=== PATIENT | female | born 1935 | race Caucasian/White ===

== ENCOUNTER 2017-03-05 08:50 | Emergency (ER) | payer MEDICARE ==
--- NOTE | 2017-03-05 09:04 | ED.PDOC ---
History of Present Illness - General Chief Complaint: Lower Extremity Injury Stated Complaint: fall Time Seen by Provider: 03/05/17 08:57 Source: patient Exam Limitations: no limitations - History of Present Illness Initial Comments: Patient presents with right ankle pain after falling from a step. She landed on her buttocks. She says that she heard a "pop" in her right ankle. She complains of mild pain in the right ankle but got morphine 10 mg IV in the ambulance. No previous history of trauma to the area. Did not lose consciousness nor hit her head. No other complaints. Timing/Duration: 1/2 hour Severity: moderate Improving Factors: rest Worsening Factors: movement Associated Symptoms: denies symptoms Allergies/Adverse Reactions: Allergies NO KNOWN ALLERGY Allergy (Verified 03/05/17 09:06) Review of Systems - Review of Systems Constitutional: States: no symptoms reported EENTM: States: no symptoms reported Respiratory: States: no symptoms reported Cardiology: States: no symptoms reported Gastrointestinal/Abdominal: States: no symptoms reported Genitourinary: States: no symptoms reported Musculoskeletal: States: see HPI Skin: States: no symptoms reported Neurological: States: no symptoms reported Endocrine: States: no symptoms reported Hematologic/Lymphatic: States: no symptoms reported Past Medical History (General) - Patient Medical History Hx Stroke: No Hx Congestive Heart Failure: No Hx Hypertension: Yes Hx Diabetes: No - Vaccination History Hx Tetanus, Diphtheria Vaccination: Yes Hx Influenza Vaccination: No Hx Pneumococcal Vaccination: Yes - years ago - Social History Hx Tobacco Use: Yes - Female History Patient : No Family Medical History - Family History Mother Family History: No Known Living Status: Physical Exam - Physical Exam General Appearance: Alert Respiratory: lungs clear Cardiovascular/Chest: normal peripheral pulses, regular rate, rhythm Gastrointestinal/Abdominal: normal bowel sounds, non tender, soft Extremity: other - obvious deformity to the right ankle. Patient has full sensation over the entire foot and toes. 2+ dorsal pedis pulses and skin is warm to touch. Capillary refill is less than 2 seconds. Neurologic: no motor/sensory deficits Progress - Progress Progress: 03/05/17 09:06 Zofran 4 mg IV x one. 03/05/17 10:09 Three view of the right ankle showed possible two fractures to the medial malleolus and anterior displacement of the tibia from the talus. Displacement was reduced as well as the malleolar fractures. Short leg splint applied. Repeat radiographs showed full reduction of the displacement and fractures. Hydrocodone/APAP rx written. Patient instructed to follow up with orthopedics in three days. 03/05/17 10:56 Departure - Departure Clinical Impression: Sprain of right ankle or foot Disposition: Discharge to Home or Self Care Condition: Good Departure Forms: ED Discharge - Pt. Copy, Patient Portal Self Enrollment Diet: resume usual diet Activity: other - use crutche Referrals: Reginaldo Holloway MD [Primary Care Provider] - 1-2 Weeks Additional Instructions: Take pain medications as directed if needed. Keep right foot elevated at night. May use ice as needed. Follow up with orthopedic surgeon in three days for casting.
[2017-03-05 09:07] VITALS: TEMP 97.7
[2017-03-05] MEDS ORDERED: ONDANSETRON INJ 4 MG/2 ML VIAL IV ONE (09:07)
--- NOTE | 2017-03-05 09:36 | RAD ---
EXAM DESCRIPTION: Ankle,Right 3 Views CLINICAL HISTORY: fall with deformity to right ankle COMPARISON: None. IMPRESSION: 3 views of the right ankle show fracture or dislocation. There is probable fracture of at least the medial malleolus and probably distal posterior tibia. Lateral projection shows anterior displacement of the tibia relative to the talus. Question osseous fragments anterior and distal to the tibia. There also appears to be fracture through the tibial plafond extending to the lateral aspect of the distal tibia. Osseous structures are diffusely osteopenic. Mild vascular calcifications are seen. Small plantar enthesophyte of the calcaneus is noted. Electronically signed by: Dominick Nelson MD 03/05/2017 9:35 AM CDT
[2017-03-05 09:37] VITALS: BP 176/72; O2SAT 93
[2017-03-05] MEDS ORDERED: BACITRACIN-POLYMYXIN B OINT U/D PACK TOP ONE (09:56)
--- NOTE | 2017-03-05 10:36 | RAD ---
EXAM DESCRIPTION: Ankle,Right 3 Views CLINICAL HISTORY: 81 years, Female, status post reduction COMPARISON: 9:19 AM today FINDINGS: Improved near anatomic alignment ankle joint now seen. There are fractures of the medial and lateral malleolus. Minimal lateral subluxation of the lower fibula. Ankle mortise appears restored. Soft tissue swelling around the ankle particularly laterally. IMPRESSION: Improved near anatomic alignment right ankle joint post reduction. Ankle mortise is restored with near anatomic alignment fractures of the medial and lateral malleolus. Moderate soft tissue swelling around the ankle particularly laterally. Other findings stable compared to earlier today Electronically signed by: Kamaljit Badillo MD 03/05/2017 10:36 AM CDT
== END 2017-03-05 11:51 | disposition home or self-care (01) ==
LOC: ER 08:50
DX: S93.401A Sprain of unspecified ligament of right ankle, initial encounter (principal); I10 Essential (primary) hypertension; W10.9XXA Fall (on) (from) unspecified stairs and steps, initial encounter; Y92.9 Unspecified place or not applicable
CPT/HCPCS: 73610; J2405

== ENCOUNTER → 2017-03-08 | Outpatient (CLI) | payer MEDICARE ==
--- NOTE | 2017-03-09 08:49 | RAD ---
EXAM DESCRIPTION: Ankle,Right 3 Views CLINICAL HISTORY: 81 years Female, ANKLE PAIN IMPRESSION: 3 views of bilateral ankles reveal medial and lateral malleoli fractures with soft tissue swelling. There is some widening of the medial clear space which would be expected in a bimalleolar fracture. The syndesmosis appears intact. Electronically signed by: Barron Mckenna MD 03/09/2017 8:49 AM CDT
== END | disposition home or self-care (01) ==
LOC: RAD 09:50
PROVIDERS: ATTEND Orthopaedic Surgery
DX: M25.571 Pain in right ankle and joints of right foot (principal)

== ENCOUNTER → 2017-03-15 | Outpatient (CLI) | payer MEDICARE ==
--- NOTE | 2017-03-15 10:50 | RAD ---
EXAM DESCRIPTION: Ankle,Right 3 Views CLINICAL HISTORY: 81 years Female, CLOSED FX OF ANKLE IMPRESSION: 3 views of the right ankle are compared to March 05, 2017. There has been reduction of the ankle. The ankle mortise and syndesmosis appear unremarkable on today's study. The lateral and medial malleolus fractures demonstrate interval healing with sclerosis through the fracture. Decreasing soft tissue swelling is noted. The talar dome and subtalar joints appear unremarkable. Electronically signed by: Barron Mckenna MD 03/15/2017 10:50 AM CDT
== END | disposition home or self-care (01) ==
LOC: RAD 10:10
PROVIDERS: ATTEND Orthopaedic Surgery
DX: S82.91XD Unspecified fracture of right lower leg, subsequent encounter for closed fracture with routine healing (principal); X58.XXXA Exposure to other specified factors, initial encounter

== ENCOUNTER → 2017-03-29 | Outpatient (CLI) | payer MEDICARE ==
--- NOTE | 2017-03-30 10:27 | RAD ---
EXAM DESCRIPTION: Ankle,Right 3 Views CLINICAL HISTORY: 81 years, Female, CLOSED FX OF ANKLE COMPARISON: March 15, 2017, March 05, 2017 TECHNIQUE: AP/lateral/oblique of the ankle FINDINGS: The right ankle mortise is in satisfactory level alignment with an encircling fiberglass cast that has been relieved medially at just above the ankle. Fracture lines are difficult to appreciate through the fiberglass cast with no evidence of abnormal angulation or widening noted. Previous fracture dislocation from March 05 was reviewed. Healing fractures of the medial and lateral malleoli are suggested. IMPRESSION: 1. Encircling fiberglass cast with apparent healing fractures of the distal fibula and medial malleolus with satisfactory alignment of the ankle. Electronically signed by: Vj Sung MD 03/30/2017 10:26 AM CDT
== END ==
LOC: RAD 08:03
PROVIDERS: ATTEND Orthopaedic Surgery
DX: S82.91XD Unspecified fracture of right lower leg, subsequent encounter for closed fracture with routine healing (principal)

== ENCOUNTER → 2017-04-26 | Outpatient (CLI) | payer MEDICARE ==
--- NOTE | 2017-04-26 14:21 | RAD ---
EXAM DESCRIPTION: Ankle,Right 3 Views CLINICAL HISTORY: 81 years Female, FX COMPARISON: March 29, 2017 FINDINGS: 3 views of the right ankle were obtained. Artifact from superimposed splint material limits evaluation of bony detail. Again seen are slightly displaced medial and lateral malleolar fractures which remain at least partially nonunited and are unchanged in appearance from 1 month prior. There is a questionable nondisplaced posterior malleolar fracture. The tibiotalar joint space and talar dome are well-maintained. IMPRESSION: Non or partially united, minimally displaced medial and lateral malleolar fractures, unchanged from 1 month prior. Questionable nondisplaced posterior malleolar fracture. Electronically signed by: Nate Campos MD 04/26/2017 2:20 PM CDT Workstation: [id number]
== END ==
LOC: RAD 08:01
PROVIDERS: ATTEND Orthopaedic Surgery
DX: S82.91XD Unspecified fracture of right lower leg, subsequent encounter for closed fracture with routine healing (principal)

== ENCOUNTER → 2017-05-14 | Outpatient (CLI) | payer MEDICARE ==
--- NOTE | 2017-05-14 17:25 | RAD ---
EXAM DESCRIPTION: Ankle,Right 3 Views CLINICAL HISTORY: 81 years,Female,CLOSED FX OF ANKLE-RIGHT COMPARISON: April 26, 2017 FINDINGS: The right ankle demonstrates trimalleolar fracture which is healing. The catheter is been removed since the prior study. There still remains a joint effusion. And there is only minimal displacement of the fracture fragments which is stable talar dome unremarkable Soft tissues are unremarkable. IMPRESSION: Right ankle demonstrates healing trimalleolar fracture with minimal stable displacement. Cast been removed since prior study. [] Electronically signed by: Donny Haskins MD 05/14/2017 5:23 PM CDT
== END | disposition home or self-care (01) ==
LOC: RAD 09:01
PROVIDERS: ATTEND Orthopaedic Surgery
DX: S82.91XD Unspecified fracture of right lower leg, subsequent encounter for closed fracture with routine healing (principal)

== ENCOUNTER → 2017-06-04 | Outpatient (CLI) | payer MEDICARE ==
--- NOTE | 2017-06-04 11:48 | RAD ---
EXAM DESCRIPTION: Ankle,Right 3 Views CLINICAL HISTORY: 81 years Female, FX COMPARISON: May 14, 2017 FINDINGS: 3 views of the right ankle show old partially united medial and lateral malleolar fracture, stable. There is a probable healed posterior malleolar fracture. No new fracture or malalignment. The tibiotalar joint space and talar dome are well-maintained. Vascular calcifications are noted.. IMPRESSION: Old healed or healing trimalleolar right ankle fracture, stable. No new abnormality. Electronically signed by: Nate Campos MD 06/04/2017 11:46 AM CDT Workstation: [email or web address]
== END ==
LOC: RAD 07:51
PROVIDERS: ATTEND Orthopaedic Surgery
DX: S82.91XD Unspecified fracture of right lower leg, subsequent encounter for closed fracture with routine healing (principal)

== ENCOUNTER → 2017-07-03 | Outpatient (CLI) | payer MEDICARE | END | disposition home or self-care (01) | LOC: GMAH 11:19 | PROVIDERS: ATTEND Family Medicine | DX: E78.2 Mixed hyperlipidemia (principal) ==

== ENCOUNTER → 2017-12-06 | Outpatient (CLI) | payer MEDICARE | LOC: GMAH 16:39 | PROVIDERS: ATTEND Family Medicine | DX: N30.00 Acute cystitis without hematuria (principal) ==

== ENCOUNTER 2018-02-26 14:15 | Inpatient (IN) | payer MEDICARE ==
--- NOTE | 2018-02-26 14:33 | HP ---
SUPERVISING PHYSICIAN: Vj Hernandez MD CHIEF COMPLAINT: Right malleolus nonhealing wound. HISTORY OF PRESENT ILLNESS: Ms. Cardoza is an 82-year-old female patient who has had multiple surgeries of the right ankle after she sustained a fracture on 02/26/17. She notes she was walking out of her shop, twisted her ankle and after examination by x-ray, it was found the ankle was fractured. She was treated conservatively by Dr. Dickerson conservatively over the summer. She felt like the ankle was not healing and sought a second opinion with another orthopedic surgeon at [facility], Dr. Lozada, who then in September did an open reduction internal fixation of the right ankle. She did have fairly well, but developed an infection postoperatively and then had to have the hardware removed on 12/12/17. After that surgery, she started rehab for wound care management at [facility] outpatient therapy. The patient had been advised multiple times to seek advanced wound care, but had refused to go to [place] for wound management and at that point was transferred care back to physical therapy who has been doing wound care at least two days a week. She does have a long history of smoking since age 45 approximately 1 to 1 -1/2 packs a day and currently smokes. She denies any recent treatment with antibiotics and was at wound care today when Bala, physical therapist, noted that the wound had significantly changed over the weekend since Sunday and noted some area of cellulitis and possible worsening with concern for a localized infection. Given that the wound is overlying the medial malleolus and has underlying hardware to include two screws that were left, the patient is now going to be admitted for initiation of antibiotic therapy parenterally with a consultation with Dr. Tatum for further management of wound. The patient was admitted in stable condition. PAST MEDICAL HISTORY: 1. Depression. 2. Hyperlipidemia. 3. Hypertension. 4. 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 5. Ankle fracture requiring multiple surgeries for initial repair and then after an infectious process for surgical removal of hardware. PAST SURGICAL HISTORY: 1. Hysterectomy. 2. Right carotid endarterectomy. 3. Ankle surgery for open reduction internal fixation in September 2017 and surgical removal of hardware due to postoperative complications and infection, performed by orthopedic surgeon, Dr. Phoenix Lozada at [facility] in [place]. HOME MEDICATIONS: 1. [place] 5/325 1 q.4h. p.r.n. for pain. 2. Citalopram 2 mg daily. 3. Simvastatin 40 mg at bedtime. 4. Losartan 100 mg daily. 5. Metoprolol tartrate 50 mg b.i.d. 6. Hydralazine 50 mg b.i.d. 7. Ramipril 10 mg b.i.d. 8. Meloxicam 7.5 mg daily. ALLERGIES: CODEINE. FAMILY HISTORY: Noncontributory. SOCIAL HISTORY: The patient lives in [place]. 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 She does not drink alcohol, but she has a history of smoking tobacco well over 44 years, 1 to 1-1/2 a day. REVIEW OF SYSTEMS: CONSTITUTIONAL: Denies any fevers, chills, or unintentional weight loss. HEENT: Denies headaches, sore throats, nasal congestion, earaches. RESPIRATORY: Denies cough, dyspnea, wheezing. CARDIOVASCULAR: Denies chest pain, palpitations or syncopal episodes. GASTROINTESTINAL: Denies constipation, diarrhea, abdominal pain, nausea or vomiting. MUSCULOSKELETAL: As noted in history of present illness, chronic wound to the right ankle, medial malleolus, currently under wound management. NEUROLOGIC: Denies ataxia, headaches, seizures or other neurological deficits. PHYSICAL EXAMINATION: VITAL SIGNS: Afebrile on admission with temperature 98.1. Pulse 66. Blood pressure elevated at 200/93 with pulse 16, saturation 100% on room air. Weight 54.9 kg. GENERAL: On admission, the patient appears to be comfortable, resting, no acute distress, she is alert. HEENT: Tympanic membranes are occluded by cerumen bilaterally. Oropharynx is pink, moist without any lesions. NECK: Supple, nontender with full range of motion. No jugular venous distention noted. RESPIRATORY: Lungs clear to auscultation bilaterally without any rhonchi, wheezes, or rales. CARDIOVASCULAR: Regular rate and rhythm without any appreciable murmurs, gallops, or rubs. ABDOMEN: Soft, nontender. Positive bowel sounds. EXTREMITIES: The right lower extremity shows a wound overlying the medial malleolus, quarter size, symmetrical in appearance with some localized erythema with a central area that appears to be with some purulent drainage, but no obvious drainage noted distally. Pulses are the fait bilaterally with capillary refill brisk. NEUROLOGIC: The patient is alert and oriented times three. LABORATORY: CBC on admission was within normal limits with white count 7,900. No left shift was noted. Electrolytes were normal with potassium 4.1, BUN 10, creatinine 0.61, lactic acid 0.8, calcium 9.6. Liver functions all within normal limits. C-reactive protein is less than 0.05. MICROBIOLOGY: Wound culture of the right malleolus wound is pending. Blood cultures pending. RADIOLOGY: X-ray of the right ankle per radiologic interpretation shows osteoporotic appearance of the bones of the right ankle and foot with screws through the medial malleolar fracture. There was deformity of the lateral malleolus due to old healed fracture and screws through the malleolar fracture with no acute appearing fracture or callus of the calcaneus. There was widening of the ankle joint medially, but bones appear to be osteopenic. Please see that report for full details. ASSESSMENT: 1. 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 2. Chronic wound failing to respond to outpatient wound care management with concerns for worsening acutely and localized cellulitis requiring initiation of parenteral antibiotics and further consultation for wound management with Dr. Tatum, general surgeon. 3. Hypertension, poorly controlled. 4. Chronic tobacco abuse complicating wound management with pending lower extremity arterial studies. 5. Osteoporosis. PLAN: The patient will be admitted directly from physical therapy for initiation of parenteral antibiotics to include vancomycin per pharmacy protocol as well as dosing of broad spectrum coverage with wound cultures pending, and broad spectrum coverage with Unasyn [address] Tatum has been consulted to assist with wound management and consideration for possible need for a further surgical debridement of the wound in question. The patient will be encouraged to keep her leg elevated. Wound care will be wet-to-dry dressing and further management per Dr. Tatum. Wound cultures are pending. We will target antibiotic therapy according to those results once available. We will have her on DVT prophylaxis as per protocol. She is again encouraged to stop smoking which she notes that will not happen and she has been given a nicotine patch to assist in her efforts in preventing nicotine withdrawals while in the hospital. We will await arterial vascular studies, ultrasound in the morning. We will anticipate length of stay to be at least 2 to 3 days. I did discuss with her the need for advanced wound management if possible in [place]. 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 Once clinically stable, the patient can certainly continue with outpatient management with wound care as well as consideration for possible long -term antibiotic therapy as needed. Until then, we will continue to monitor the patient closely and treat appropriately. #[id number] [facility]
[2018-02-26] MEDS ORDERED: ACETAMINOPHEN 325 MG TAB PO PRN (14:48)
[2018-02-26] MEDS ORDERED: VANCOMYCIN PER PHARMACY IVPB SCH (15:30)
--- NOTE | 2018-02-26 15:42 | RAD ---
EXAM DESCRIPTION: Ankle,Right 3 Views CLINICAL HISTORY: 82 years, Female, chronic wound rt Malleolus s/p harware removal COMPARISON: Previous study June 04, 2017 TECHNIQUE: AP/lateral/oblique of the right ankle FINDINGS: Screws are seen through medial malleolar fracture. Deformity of the lateral malleolus is consistent with old healed fracture. There is widening of the ankle joint medially. Bones appear osteopenic. No defect of the talar dome. Lateral view shows osteopenic bones of the hindfoot and midfoot. No acute appearing fracture of talus or calcaneus. Dorsal calcaneal spurring is present. Distal first metatarsal is questionable in appearance. Correlate with physical exam with x-rays if indicated. IMPRESSION: Osteoporotic appearance of the bones of the right ankle and foot with screws through medial malleolar fracture. Electronically signed by: Elton Gonzalez MD 02/26/2018 3:40 PM CDT
[2018-02-26] MEDS: IV SET AND CAP CHANGE INJ INJ SCH (15:51)
[2018-02-26] MEDS ORDERED: VANCOMYCIN HCL INJ 1,000 MG in SODIUM CHLORIDE 0.9% 250ML 250 ML IVPB ONE (16:00)
[2018-02-26] MEDS ORDERED: SODIUM CHLORIDE 0.9% 250ML 250 ML ONE (16:22)
[2018-02-26] MEDS ORDERED: VANCOMYCIN HCL INJ 1,000 MG VIAL IVPB ONE (16:22)
[2018-02-26] MEDS ORDERED: HYDROcodone 5MG/APAP 325MG 1 EA TAB ONE (17:09)
[2018-02-26] MEDS ORDERED: HYDROcodone 5MG/APAP 325MG 1 EA TAB PO ONE (17:18)
--- NOTE | 2018-02-26 18:33 | PCM.CORE ---
Physician DVT/VTE - Nurse DVT Assessment & Total Each Risk Factor Represents 3 Points: Age over 75 years Each Risk Factor Represents 1 Point: Medical PT at Bed Rest, Hx of smoking past year Each Risk Factor is 1 Point: Varicose Veins/Edema Legs DVT Assessment Score: 6 - 5 or more Very High Risk Treatments: Early Ambulation *, Sequential Compression Device Pharmacological: Enoxaparin 40mg SQ Daily
[2018-02-26] MEDS: NICOTINE PATCH 21 MG TD SCH (18:54)
[2018-02-26] MEDS ORDERED: SODIUM CHL 0.9% 100ML MINI-BAG 100 ML IVPB ONE (19:53)
[2018-02-26] MEDS ORDERED: AMPICILLIN & SULBACTAM SODIUM 3 GM VIAL ONE (19:53)
[2018-02-26] MEDS: AMPICILLIN & SULBACTAM SODIUM 3 GM in SODIUM CHL 0.9% 100ML MINI-BAG 100 ML IVPB SCH (20:19)
[2018-02-26] MEDS: ENOXAPARIN SODIUM 40 MG/0.4 ML SYG SUBCU SCH (21:14)
[2018-02-26] MEDS ORDERED: RAMIPRIL 10 MG PO SCH (21:45)
[2018-02-26] MEDS ORDERED: NON-FORMULARY MEDICATION 1 EA MIS (Hydralazine Hcl [Hydralazine Hcl] 50 MG) PO SCH (21:45)
[2018-02-26] MEDS ORDERED: METOPROLOL TARTRATE 50 MG TAB PO SCH (22:00)
[2018-02-26] MEDS ORDERED: RAMIPRIL 5 MG CAP ONE (22:04)
[2018-02-27] MEDS ORDERED: SODIUM CHL 0.9% 100ML MINI-BAG 100 ML IVPB ONE ×4 (00:34→20:01)
[2018-02-27] MEDS ORDERED: AMPICILLIN & SULBACTAM SODIUM 3 GM VIAL ONE ×4 (00:34→20:01)
[2018-02-27] MEDS: AMPICILLIN & SULBACTAM SODIUM 3 GM in SODIUM CHL 0.9% 100ML MINI-BAG 100 ML IVPB SCH ×5 (01:45→20:44)
[2018-02-27] MEDS: SODIUM CHLORIDE 0.9% (FLUSH) 10 ML SYG IV PRN (01:46)
[2018-02-27] MEDS: HYDROcodone 5MG/APAP 325MG 1 EA TAB PO PRN (03:49)
[2018-02-27] MEDS: RAMIPRIL 5 MG CAP PO SCH ×2 (08:21→20:45)
[2018-02-27] MEDS: MELOXICAM 7.5 MG TAB PO SCH (08:21)
[2018-02-27] MEDS: LOSARTAN POTASSIUM 100 MG TAB PO SCH (08:22)
[2018-02-27] MEDS: CITALOPRAM HBR 20 MG TAB PO SCH (08:22)
[2018-02-27] MEDS: METOPROLOL TARTRATE 50 MG TAB PO SCH ×2 (08:23→16:44)
[2018-02-27] MEDS: NICOTINE PATCH 21 MG TD SCH (08:27)
--- NOTE | 2018-02-27 10:25 | CONS ---
DATE OF CONSULTATION: 02/26/18 HISTORY OF PRESENT ILLNESS: The patient is an 82-year-old female who has been under wound care for a nonhealing lesion over her right medial malleolus. She is status post fracture of that ankle. She has had her hardware removed approximately 3 months ago. She was attempted to be referred for wound management, so she is being followed by the outpatient physical therapy department. The patient continues to smoke and has smoked approximately 50 to 60 pack years of tobacco abuse. She also has chronic edema in that leg and states she has things she has to do so that she cannot stay off of it and it does swell whenever she is up. PAST MEDICAL HISTORY: 1. Depression. 2. Hyperlipidemia. 3. Hypertension. PAST SURGICAL HISTORY: 1. Hysterectomy. 2. Right carotid endarterectomy. 3. Multiple surgeries on her right ankle. MEDICATIONS AT TIME OF ADMISSION: 1. [place]. 2. Citalopram. 3. Simvastatin. 4. Losartan. 5. Metoprolol. 6. Hydralazine. 7. Ramipril. 8. Meloxicam. ALLERGIES: CODEINE. FAMILY HISTORY: Noncontributory. 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 She does not drink alcohol, but as noted has a long history of smoking. REVIEW OF SYSTEMS: Noncontributory. No chest pain, shortness of breath. No weight loss. PHYSICAL EXAMINATION: VITAL SIGNS: The patient is currently afebrile, normotensive. HEENT: Sclerae nonicteric. Mucous membranes moist. EXTREMITIES: Right lower extremity shows no significant edema at the time. The wound has some granulation tissue and no significant drainage, but a culture has been taken. The foot is warm. There is no significant erythema surrounding the wound. LABORATORY: On admission, white count 7,000 with left shift. Creatinine 0.61. Liver functions within normal limits. C-reactive protein is less than 0.05. Wound culture is pending. Blood cultures are pending. X-ray reveals osteoporotic bones with screws. There is no appearance associated with osteomyelitis. ASSESSMENT: 1. Chronic nonhealing wound over the right medial malleolus. 2. Chronic edema of that extremity with the patient unable to stay off of it. PLAN: We will discuss with home health the possibility of a wound VAC at home after a skin graft. She has used [facility] in the past and I will discuss this with them. #[id number] [facility]
--- NOTE | 2018-02-27 13:38 | PN ---
SUPERVISING PHYSICIAN: Vj Hernandez MD DATE: 02/27/18 SUBJECTIVE: The patient is sitting up in her chair eating her lunch. She has no complaints of nausea, vomiting, diarrhea, constipation. Her right foot does continue to hurt occasionally and feels like it is swollen, but no more than usual. OBJECTIVE: VITAL SIGNS: She is afebrile. T-max 24 hours is 99. Heart rate 64. Blood pressure 172/74. Respiratory rate 18. O2 sat 97% on room air. RESPIRATORY: Essentially clear to auscultation bilaterally. CARDIAC: Regular rate and rhythm. GASTROINTESTINAL: Abdomen is soft, nondistended, nontender. Bowel sounds are positive. EXTREMITIES: The right lower leg has a wound on the medial malleolus. It has a small amount of erythema with minimal drainage. Her bilateral pedal pulses are +1. There is some edema surrounding that area. NEUROLOGIC: Awake, alert and oriented times three. LABORATORY: Sodium 136, potassium 3.6, chloride 99, carbon dioxide 30, BUN 10, creatinine 0.57. Liver functions all within normal limits. Preliminary blood cultures are negative to date. There is a wound culture pending. All other labs and films have been reviewed via the EMR. ASSESSMENT: 1. 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 2. Chronic wound failing to respond to outpatient wound care management with concerns for worsening acutely and localized cellulitis. She is presently on parenteral antibiotics and wound management per Dr. Tatum, general surgeon. 3. Hypertension, poorly controlled. 4. Chronic tobacco abuse complicating wound management. 5. Osteoporosis. PLAN: We will continue present supportive care. Wound management will be per Dr. Geo Tatum, general surgeon. At this point, he is deciding what kind of wound care we will do, whether it will be a wound VAC with [facility] or other treatments. She continues to smoke and will not leave her foot elevated, which complicates her healing. Hopefully once plan is in place, we can begin outpatient treatment. We will monitor her culture closely to guide antibiotic therapy. We will continue to monitor the patient closely and follow as needed. Dr. Hernandez is the collaborating physician and available for consultation. #[id number] [facility]
--- NOTE | 2018-02-27 16:22 | US ---
EXAM DESCRIPTION: Extremity,Lower RT Arteries CLINICAL HISTORY: 82 years Female, Chronic wound on ankle non-healing COMPARISON: None. TECHNIQUE: Duplex imaging was acquired through the right lower extremity FINDINGS: Peak systolic velocities (cm/sec) are as follows: Right: Left: SHEARING SHED WORKER: 130 cm/s SHEARING SHED WORKER: Proximal SFA: Zero Proximal SFA: N/A Mid SFA: 0 Mid SFA: N/A Distal SFA: 0 Distal SFA: N/A Popliteal: 51 Popliteal: N/A HORACIO: N/A HORACIO: N/A COLLISION CENTER MANAGER: 56 COLLISION CENTER MANAGER: N/A Dorsalis pedis: 19 Dorsalis pedis: N/A Right: Grayscale imaging demonstrates intimal thickening and plaquing in the right common femoral artery. There is occlusion of the right superficial femoral artery. There are monophasic tardus parvus waveforms in the right popliteal extending into the calf vessels. IMPRESSION: Diffuse plaquing and intimal thickening in the common femoral artery with elevated velocities suggesting proximal stenosis. Occlusion of the superficial femoral artery Abnormal tardus parvus monophasic waveforms in the popliteal and calf vessels with flow in the dorsalis pedis and the posterior tibial. Electronically signed by: Mariza Lugo MD 02/27/2018 4:21 PM CDT
[2018-02-27] MEDS ORDERED: VANCOMYCIN HCL INJ 1,000 MG VIAL IVPB ONE (16:27)
[2018-02-27] MEDS ORDERED: SODIUM CHLORIDE 0.9% 250ML 250 ML ONE (16:27)
[2018-02-27] MEDS: VANCOMYCIN HCL INJ 1,000 MG in SODIUM CHLORIDE 0.9% 250ML 250 ML IVPB SCH (16:43)
[2018-02-27] MEDS: SIMVASTATIN 20 MG TAB PO SCH (20:45)
[2018-02-27] MEDS: ENOXAPARIN SODIUM 40 MG/0.4 ML SYG SUBCU SCH (20:46)
[2018-02-28] MEDS ORDERED: SODIUM CHL 0.9% 100ML MINI-BAG 100 ML IVPB ONE ×5 (01:34→19:08)
[2018-02-28] MEDS ORDERED: AMPICILLIN & SULBACTAM SODIUM 3 GM VIAL ONE ×4 (01:34→19:08)
[2018-02-28] MEDS: AMPICILLIN & SULBACTAM SODIUM 3 GM in SODIUM CHL 0.9% 100ML MINI-BAG 100 ML IVPB SCH ×4 (01:53→19:31)
[2018-02-28] MEDS: SODIUM CHLORIDE 0.9% (FLUSH) 10 ML SYG IV PRN (01:54)
[2018-02-28] MEDS: METOPROLOL TARTRATE 50 MG TAB PO SCH ×2 (08:09→17:17)
[2018-02-28] MEDS: LOSARTAN POTASSIUM 100 MG TAB PO SCH (09:24)
[2018-02-28] MEDS: CITALOPRAM HBR 20 MG TAB PO SCH (09:25)
[2018-02-28] MEDS: MELOXICAM 7.5 MG TAB PO SCH (09:25)
[2018-02-28] MEDS: NICOTINE PATCH 21 MG TD SCH (09:25)
[2018-02-28] MEDS: RAMIPRIL 5 MG CAP PO SCH ×2 (09:25→20:45)
[2018-02-28] MEDS ORDERED: ALPRAZolam 0.25 MG TAB PO PRN (11:49)
--- NOTE | 2018-02-28 13:06 | PN ---
SUPERVISING PHYSICIAN: jV Hernandez MD DATE: 02/28/18 SUBJECTIVE: The patient is lying in bed. She has recently had her dressing changed. we had a long discussion about going home with wound care from [facility] as well as having a wound VAC and that it is very important that she continue to do good wound care to prevent any further complications to the right lower leg. Her blood pressure has also been somewhat elevated and she did say that having a lot of visitors had made her somewhat anxious. I told her we would observe her blood pressure overnight in case we need to make any changes to her blood pressure medications. OBJECTIVE: VITAL SIGNS: She is afebrile. Heart rate 76. Blood pressure 196/ 86. Earlier this morning, it was 156/73. Respiratory rate 18. O2 sat 93% on room air. RESPIRATORY: Essentially clear to auscultation bilaterally. CARDIAC: Regular rate and rhythm. EXTREMITIES: The wound to her right medial malleolus has less erythema than yesterday. There is very minimal drainage. The drainage is pale yellow. There is good granulation. Her bilateral pedal pulses are +1. NEUROLOGIC: Awake, alert and oriented times three. LABORATORY: There are no labs or films to report at this time. ASSESSMENT: 1. 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 2. Chronic wound failing to respond to outpatient wound care management with concerns for worsening acutely and localized cellulitis. She is presently on parenteral antibiotics and wound management per Dr. Tatum, general surgeon. 3. Hypertension, poorly controlled. Chronic tobacco abuse complicating wound management. 5. Osteoporosis. PLAN: We will continue present supportive care. I will plan for discharge in the morning. We will watch her blood pressure overnight. Her elevated blood pressures may be due to some anxiety as she was over-stimulated quite a bit this morning. We will order her some p.r.n. Xanax. The preliminary wound cultures should be available late this evening or early in the morning which will drive her antibiotic therapy. For now, we will continue with the present antibiotics. I will watch her blood pressure overnight and plan for discharge in the morning with [facility] continuing with her wound care. [facility] is to call Dr. Tatum for further wound care orders. Meanwhile, we will continue to monitor the patient closely and follow as needed. Dr. Hernandez is the collaborating physician and available for consultation. [facility][id number] [facility]
[2018-02-28] MEDS ORDERED: SODIUM CHLORIDE 0.9% 250ML 250 ML ONE (17:11)
[2018-02-28] MEDS ORDERED: VANCOMYCIN HCL INJ 1,000 MG VIAL IVPB ONE (17:12)
[2018-02-28] MEDS: VANCOMYCIN HCL INJ 1,000 MG in SODIUM CHLORIDE 0.9% 250ML 250 ML IVPB SCH (17:17)
[2018-02-28] MEDS: SIMVASTATIN 20 MG TAB PO SCH (20:46)
[2018-02-28] MEDS: ENOXAPARIN SODIUM 40 MG/0.4 ML SYG SUBCU SCH (20:46)
[2018-03-01] MEDS ORDERED: AMPICILLIN & SULBACTAM SODIUM 3 GM VIAL ONE ×5 (01:26→19:07)
[2018-03-01] MEDS ORDERED: SODIUM CHL 0.9% 100ML MINI-BAG 100 ML IVPB ONE ×5 (01:26→19:07)
[2018-03-01] MEDS: AMPICILLIN & SULBACTAM SODIUM 3 GM in SODIUM CHL 0.9% 100ML MINI-BAG 100 ML IVPB SCH ×4 (01:46→20:02)
[2018-03-01] MEDS ORDERED: VANCOMYCIN HCL INJ 1,000 MG VIAL IVPB ONE ×3 (04:02→19:06)
[2018-03-01] MEDS ORDERED: SODIUM CHLORIDE 0.9% 250ML 250 ML ONE ×3 (04:02→19:05)
[2018-03-01] MEDS: VANCOMYCIN HCL INJ 1,000 MG in SODIUM CHLORIDE 0.9% 250ML 250 ML IVPB SCH ×2 (05:12→17:22)
[2018-03-01] MEDS: SODIUM CHLORIDE 0.9% (FLUSH) 10 ML SYG IV PRN (05:13)
[2018-03-01] MEDS: METOPROLOL TARTRATE 50 MG TAB PO SCH ×2 (07:40→17:22)
[2018-03-01] MEDS: CITALOPRAM HBR 20 MG TAB PO SCH (09:18)
[2018-03-01] MEDS: LOSARTAN POTASSIUM 100 MG TAB PO SCH (09:21)
[2018-03-01] MEDS: BIFIDOBACTERIUM INFANTIS 4 MG CAP PO SCH (09:21)
[2018-03-01] MEDS: RAMIPRIL 5 MG CAP PO SCH ×2 (09:21→20:53)
[2018-03-01] MEDS: NICOTINE PATCH 21 MG TD SCH (09:22)
[2018-03-01] MEDS: MELOXICAM 7.5 MG TAB PO SCH (09:23)
[2018-03-01] MEDS: IV SET AND CAP CHANGE INJ INJ SCH (15:00)
[2018-03-01] MEDS: ENOXAPARIN SODIUM 40 MG/0.4 ML SYG SUBCU SCH (20:53)
[2018-03-01] MEDS: SIMVASTATIN 20 MG TAB PO SCH (20:53)
--- NOTE | 2018-03-01 22:02 | PN ---
DATE: 03/01/18 SUPERVISING PHYSICIAN: Vj Hernandez M.D. SUBJECTIVE: The patient is resting in bed. She has been keeping her leg elevated and has been off of it as much as possible. She has been afebrile. I discussed with her waiting on final culture results to further target antibiotic therapy prior to discharge to ensure that we discharge her on the correct medication. Again, reinforcing the need for aggressive wound management to prevent loss of limb and the need to stop smoking. OBJECTIVE: VITAL SIGNS: Temperature 97.0, pulse 64, blood pressure 158/85, respirations 16, satting 97% on room air. I's and O's are balanced. Weight 54.1 kg. CHEST: Lungs are clear to auscultation. HEART: Regular rate and rhythm. ABDOMEN: Soft, non-tender. Positive bowel sounds. EXTREMITIES: Right lower extremity continues to show the right medial malleolus wound that is mildly erythematous compared to admission with no obvious drainage today. There appears to be good granulation tissue to the wound bed. Pulses were 1+ bilaterally. NEUROLOGIC: She is alert and oriented times three. LABORATORY: No additional laboratory studies were completed. MICROBIOLOGY: Gram stain results of the wound culture showed numerous gram negative bacilli. Preliminary culture results show 2 organisms. Number 1 and number 2 both a gram negative bacilli needing further workup and awaiting further culture and sensitivity reports. RADIOLOGY: She did have a lower extremity Doppler arterial study and per radiology interpretation showed diffuse plaque and intimal thickening in the common femoral artery with elevated velocities suggesting proximal stenosis with occlusion in the superficial femoral artery and abnormal wave forms noted in the popliteal and calf vessels with flow in the dorsalis pedis and posterior tibial. ASSESSMENT: 1. 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 2. Chronic wound failing to respond to outpatient wound care management with concerns for worsening clinically due to the patient having poor peripheral circulation as documented by arterial studies with the patient being on parenteral antibiotics and wound management showing slow clinical response. 3. Hypertension fairly well controlled now. 4. Chronic tobacco abuse complicating wound management. 5. Osteoporosis. PLAN: Will continue with another 24 hours of antibiotic parenteral coverage awaiting final results of culture results of the wound. Those hopefully will be available tomorrow and as soon as able, will discharge the patient to continue with appropriate antibiotic therapy in the outpatient setting. Until then, will continue to monitor and treat appropriately. The patient is planned to discharge tomorrow with [facility] with continued wound care. She will have [facility] call Dr. Tatum for wound management orders. Until discharge, will continue to follow and treat appropriately. [facility][id number] [facility]
[2018-03-01] MEDS: HYDROcodone 5MG/APAP 325MG 1 EA TAB PO PRN (23:03)
[2018-03-02] MEDS: AMPICILLIN & SULBACTAM SODIUM 3 GM in SODIUM CHL 0.9% 100ML MINI-BAG 100 ML IVPB SCH ×2 (01:22→07:38)
[2018-03-02] MEDS: VANCOMYCIN HCL INJ 1,000 MG in SODIUM CHLORIDE 0.9% 250ML 250 ML IVPB SCH (04:34)
[2018-03-02] MEDS: METOPROLOL TARTRATE 50 MG TAB PO SCH ×2 (06:15→06:21)
[2018-03-02 06:20] VITALS: BP 184/72; TEMP 97; O2SAT 96
[2018-03-02] MEDS ORDERED: AMPICILLIN & SULBACTAM SODIUM 3 GM VIAL ONE (07:31)
[2018-03-02] MEDS ORDERED: SODIUM CHL 0.9% 100ML MINI-BAG 100 ML IVPB ONE (07:31)
[2018-03-02] MEDS: LOSARTAN POTASSIUM 100 MG TAB PO SCH (08:40)
[2018-03-02] MEDS: MELOXICAM 7.5 MG TAB PO SCH (08:40)
[2018-03-02] MEDS: NICOTINE PATCH 21 MG TD SCH (08:40)
[2018-03-02] MEDS: BIFIDOBACTERIUM INFANTIS 4 MG CAP PO SCH (08:40)
[2018-03-02] MEDS: CITALOPRAM HBR 20 MG TAB PO SCH (08:41)
[2018-03-02] MEDS: RAMIPRIL 5 MG CAP PO SCH (08:41)
--- NOTE | 2018-03-03 22:28 | DS ---
SUPERVISING PHYSICIAN: Vj Hernandez M.D. DISCHARGE DIAGNOSIS: 1. Chronic nonhealing wound in the right malleolus status post orthopedic hardware removal after a previous open reduction internal fixation with residual screws extending through the medial malleolar fracture with wound culture showing a Pseudomonas aeruginosa that was pansensitive on final results. 2. Chronic wound failing to respond to outpatient wound care management with concerns for worsening clinically due to the patient's poor compliance with treatment and poor peripheral vascular circulation as documented by arterial studies . 3. Hypertension fairly well controlled now. 4. Chronic tobacco abuse complicating wound management. 5. Osteoporosis. REASON FOR HOSPITALIZATION: Ms. Cardoza is an 82-year-old female patient who has had multiple surgeries of the right ankle after she sustained a fracture on 02/26/17. She was walking out of her shop recently and twisted her ankle, and after examination by x-ray, it was noted this past summer that she had actually fractured the ankle. Initially she was treated conservatively by Dr. Dickerson over the summer. She felt like the ankle was not healing to her satisfaction and thus she sought a second opinion with another orthopedic surgeon at [place], Dr. Lozada, who then in September did an open reduction internal fixation of the right ankle. She did fairly well postoperatively but developed an infection shortly after and then had to have the hardware removed on 12/12/17. After the removal of hardware surgery, she started on rehab for wound care management at [facility]. The patient had been advised multiple times to seek advanced wound management, but had refused to go to [place] for wound management and at that point was transferred care back to physical therapy which had been ongoing for at least two to three days a week. She does have a long history of smoking since age 45 approximately 1 to 1-1/2 packs a day and currently smokes. She denies any recent treatment with antibiotics and was at wound care on the date of admission when Bala, physical therapist, noted that the wound had significantly changed over the weekend and noted some areas showed areas of cellulitis and possible worsening with concern for a localized infection. Given that the wound is overlying the medial malleolus and has underlying hardware to include two screws that were left postoperatively, the patient was then admitted for initiation of antibiotic therapy with parenteral antibiotics with a consultation with Dr. Tatum for further management of wound. She was admitted in stable condition. LABORATORY: CBC on admission showed normal levels with white count 7,900, chemistries on admission showed normal electrolytes both on admission and discharge with BUN 10, creatinine 0.57 at discharge. Liver functions all showed normal limits. Lactic acid was normal at 0.8, C reactive protein less than 0.05. ESR was not completed. She had a vancomycin trough on 02/28/18 that was 5.4. MICROBIOLOGY: She had a wound culture of the right ankle that showed final results with a Pseudomonas aeruginosa species that was pansensitive, including Levaquin. Anaerobic and aerobic blood cultures remain negative after 4 days. RADIOLOGY: Initially on admission she had an ankle x-ray of the right ankle and per radiology interpretation showed osteoporotic appearance of the bones of the right ankle and the foot with screws through the medial malleolar fracture. She also had lower extremity arterial Dopplers of the right lower extremity and per radiology interpretation showed diffuse plaquing and internal thickening in the common femoral artery with elevated velocities suggesting proximal stenosis with occlusion of the superficial femoral artery and abnormal wave forms in the popliteal and calf vessels with flow in the dorsalis pedis and posterior tibial. HOSPITAL COURSE: Ms. Cardoza was admitted on 02/26/18 as noted above for further wound management and initiation of antibiotic therapy. She initially was started on Unasyn and vancomycin per Pharmacy protocol. She responded well to treatment and physical therapy. She had a consultation with Dr. Tatum who managed the wound management through hospitalization. It was felt that she had progressed well enough to continue with outpatient treatment management. PLAN: Ms. Cardoza was discharged on 03/02/18 to continue with outpatient antibiotic therapy. She is to resume her home medications as previous to hospitalization and start new medications as directed. She is again encouraged to stop smoking and was utilizing a nicotine patch at time of discharge. Diet at discharge was regular diet as tolerated. Activity was to be no weightbearing. No tub baths, only showers. Keep the foot elevated as much as possible and keep off of it until wound was healed. She is to followup with Dr. Tatum next week as well as Dr. Holloway. Prescriptions at discharge included: 1. Augmentin 875 mg twice daily, #28. 2. Align 4 mg daily, #30. 3. [place] 5/[address] Tatum. 4. Levaquin 750 mg daily, #14. 5. Nicotine patch 21 mg daily, #30. Condition on discharge was stable and improved. [facility][id number] [facility]
== END 2018-03-02 09:46 | disposition home health service (06) | DRG 603 ==
LOC: MS 14:15
PROVIDERS: ADMIT Nurse Practitioner Family; ATTEND Nurse Practitioner Family
DX: L03.115 Cellulitis of right lower limb (principal); F32.9 Major depressive disorder, single episode, unspecified; E78.5 Hyperlipidemia, unspecified; I10 Essential (primary) hypertension; M81.0 Age-related osteoporosis without current pathological fracture; F41.9 Anxiety disorder, unspecified; F17.210 Nicotine dependence, cigarettes, uncomplicated; Z79.1 Long term (current) use of non-steroidal anti-inflammatories (NSAID); Z88.5 Allergy status to narcotic agent; Z66 Do not resuscitate; Z79.891 Long term (current) use of opiate analgesic; Z79.899 Other long term (current) drug therapy

== ENCOUNTER → 2018-06-19 | Outpatient (CLI) | payer MEDICARE | LOC: LAB.O 11:50 | PROVIDERS: ATTEND Surgery | DX: L03.115 Cellulitis of right lower limb (principal) ==

== ENCOUNTER → 2018-08-08 | Outpatient (CLI) | payer MEDICARE ==
--- NOTE | 2018-08-08 16:17 | MRI ---
EXAM DESCRIPTION: Lumbar Spine w/o Contrast CLINICAL HISTORY: 82 years Female, RADICULOPATHY LUMBAR COMPARISON: None available. TECHNIQUE: Multiplanar multiecho imaging of the lumbar spine was performed without intravenous contrast administration. FINDINGS: Superior endplate compression of L2 vertebral body with minimal 10% loss of vertebral body height. Remainder of the vertebral body heights are well-maintained. The vertebral body heights are well-maintained with no acute compression deformity. Multilevel intervertebral disc space narrowing is noted. The conus medullaris terminates at T12-L1 intervertebral disc space. The visualized spinal cord demonstrates no signal abnormality. L1-L2: Mild disc bulge and facet arthropathy with no central canal stenosis. There is moderate left neural foraminal narrowing. L2-L3: Posterior disc osteophyte complex and facet arthropathy with resultant moderate bilateral neural foraminal narrowing. L3-L4: Posterior disc osteophyte complex and facet arthropathy with no central canal stenosis. There is severe right and mild left neural foraminal narrowing. L4-L5: Posterior disc osteophyte complex and facet arthropathy with no central canal stenosis. There is moderate to severe right and moderate left neural foraminal narrowing. L5-S1: No central canal stenosis. Mild right and moderate left neural foraminal narrowing is noted. The visualized prevertebral and paravertebral soft tissues appear unremarkable. IMPRESSION: 1.Superior endplate compression of L2 vertebral body with approximately 10% loss of height. 2. Multilevel degenerative disc disease and facet arthropathy throughout the lumbar spine with resultant neural foraminal narrowing, worse at L3-L4 and L4-L5 levels. Electronically signed by: Ignacio Chacon MD 08/08/2018 4:16 PM CDT
== END ==
LOC: MRI 13:18
PROVIDERS: ATTEND Family Medicine
DX: M54.16 Radiculopathy, lumbar region (principal); M51.36 Other intervertebral disc degeneration, lumbar region

== ENCOUNTER → 2018-11-11 | Outpatient (CLI) | payer MEDICARE | LOC: GMAH 10:43 | PROVIDERS: ATTEND Family Medicine | DX: I10 Essential (primary) hypertension (principal) ==

== ENCOUNTER 2019-04-27 18:52 | Observation (INO) | payer MEDICARE ==
--- NOTE | 2019-04-27 19:26 | ED.PDOC ---
History of Present Illness - General Chief Complaint: Lower Extremity Injury Stated Complaint: right hip pain Time Seen by Provider: 04/27/19 19:03 Source: family - daughter Exam Limitations: clinical condition - patient has dementia - History of Present Illness Initial Comments: Christi Cardoza 83 y/o female brought by daughter to ER while visiting patient trying to get up and from her wheelchair at [facility] and she complained of pain on her right hip joint area.Patient has dementia and could not recall if she fell last night.Patient is awake ,talking but poor historian Occurred: yesterday Pain - Lower Extremity: moderate: Right Thigh/Hip Method of Injury: fell Associated Symptoms: see hpi Allergies/Adverse Reactions: Allergies Codeine Adverse Reaction (Mild, Verified 02/26/19 11:25) Other Home Medications: Ambulatory Orders Hydralazine HCl 50 mg PO BID 02/26/18 Losartan Potassium 100 mg PO DAILY 02/26/18 Metoprolol Tartrate 50 mg PO BID 02/26/18 Ramipril 10 mg PO BID 02/26/18 Simvastatin 40 mg PO BEDTIME 02/26/18 Clonazepam 0.5 mg PO QPM 02/26/19 Tramadol HCl 25 mg PO Q4HR PRN #30 tab 04/27/19 Review of Systems - Review of Systems Musculoskeletal: States: joint pain - right hip Unable to Obtain Due To: condition, dementia All other Systems: Reviewed and Negative, No Change from Baseline Past Medical History (General) - Patient Medical History Hx Seizures: No Hx Stroke: No Hx Asthma: No Hx of COPD: No Hx Congestive Heart Failure: No Hx Pacemaker: No Hx Hypertension: Yes Hx Diabetes: No Hx Cancer: No Hx MRSA: No Surgical History: cholecystectomy, tonsillectomy, other - ankle right - Vaccination History Hx Tetanus, Diphtheria Vaccination: No Hx Influenza Vaccination: No Hx Pneumococcal Vaccination: Yes - Social History Hx Tobacco Use: Yes Hx Alcohol Use: No Hx Substance Use: No Hx Substance Use Treatment: No Hx Depression: No Hx Physical Abuse: No Hx Emotional Abuse: No - Female History Patient : No Family Medical History - Family History Mother Family History: No Known Living Status: Physical Exam - Physical Exam General Appearance: Alert, Comfortable, No apparent distress Eyes, Ears, Nose, Throat: normal ENT inspection, other - edentulous Neck: non-tender, supple Cardiovascular/Respiratory: regular rate, rhythm, no M/R/G, normal peripheral pulses, normal breath sounds Gastrointestinal/Abdominal: non-tender Back: no CVA tenderness, no vertebral tenderness Thigh/Hip: normal inspection, no evidence of injury - no bruising noted, bone tenderness - groin, limited ROM - hip Leg: normal inspection, no evidence of injury Knee: normal inspection, non-tender, no evidence of injury Ankle: normal inspection, non-tender, no evidence of injury Foot: normal inspection, non-tender, no evidence of injury Neuro/Tendon: normal sensation, normal motor functions, responds to pain Mental Status: alert, oriented x 3 Skin: normal color, warm/dry Progress - Progress Progress: 04/27/19 19:30 Vital Signs - 8 hr 04/27/19 19:18 Temperature 98.3 F Pulse Rate [ 86 Right] Respiratory 20 Rate Blood Pressure 198/91 [Left Arm] O2 Sat by Pulse 98 Oximetry 04/27/19 21:02 discuss x-ray report with patient and daughter patient offered hospital OBS for pain control but prefers to go back to [facility]. 04/27/19 21:34 Patient made up her mind decided to stay for pain control - EKG/XRAY/CT XRAY: pelvis - fracture tigh pubis Departure - Departure Clinical Impression: Right groin pain, Pain management Fall Qualifiers: Encounter type: initial encounter Qualified Code(s): W19.XXXA - Unspecified fall, initial encounter Fracture, pubis closed Qualifiers: Encounter type: initial encounter Fracture alignment: nondisplaced Laterality: right Qualified Code(s): S32.501A - Unspecified fracture of right pubis, initial encounter for closed fracture Hypertension Qualifiers: Hypertension type: essential hypertension Qualified Code(s): I10 - Essential (primary) hypertension Time of Disposition: 21:00 Disposition: Admit Patient Condition: Fair Departure Forms: Patient Portal Self Enrollment Referrals: Reginaldo Holloway MD [Primary Care Provider] - 1-2 Weeks Prescriptions: Tramadol HCl 25 mg PO Q4HR PRN #30 tab PRN Reason: Pain Home Medications: Ambulatory Orders Hydralazine HCl 50 mg PO BID 02/26/18 Losartan Potassium 100 mg PO DAILY 02/26/18 Metoprolol Tartrate 50 mg PO BID 02/26/18 Ramipril 10 mg PO BID 02/26/18 Simvastatin 40 mg PO BEDTIME 02/26/18 Clonazepam 0.5 mg PO QPM 02/26/19 Tramadol HCl 25 mg PO Q4HR PRN #30 tab 04/27/19 Decision To Admit - Decistion To Admit Decision to Admit Reason: Admit from ER Decision to Admit Date: 04/27/19 - D/W Beena Weller-ANP/Hospitalist Decision to Admit Time: 21:36
[2019-04-27] MEDS ORDERED: fentaNYL CITRATE INJ 50 MCG/ML AMP IV ONE ×2 (20:19→21:35)
--- NOTE | 2019-04-27 20:21 | RAD ---
EXAM DESCRIPTION: Hip,Right 2 Views (accession [id number]), Pelvis (accession [id number]), Femur, right (accession [id number]) CLINICAL HISTORY: 83 years Female hip pain, found in floor last night COMPARISON: None. TECHNIQUE: AP pelvis, two views of the right hip and two views of the right femur. FINDINGS: There is curvature in the lumbar spine convex left. There are marked degenerative changes along the lumbar spine on the right. There are fractures involving the medial margins of the superior and inferior pubic ramus on the right. The femur appears intact. The hip is not dislocated. There are atherosclerotic calcifications. IMPRESSION: There appear to be acute fractures involving the medial aspects of the right superior and inferior pubic rami. CT could be obtained to better evaluate if indicated. No other fractures are identified. Electronically signed by: Mauricio Lugo MD 04/27/2019 8:19 PM CDT
--- NOTE | 2019-04-27 20:21 | RAD ---
EXAM DESCRIPTION: Hip,Right 2 Views (accession [id number]), Pelvis (accession [id number]), Femur, right (accession [id number]) CLINICAL HISTORY: 83 years Female hip pain, found in floor last night COMPARISON: None. TECHNIQUE: AP pelvis, two views of the right hip and two views of the right femur. FINDINGS: There is curvature in the lumbar spine convex left. There are marked degenerative changes along the lumbar spine on the right. There are fractures involving the medial margins of the superior and inferior pubic ramus on the right. The femur appears intact. The hip is not dislocated. There are atherosclerotic calcifications. IMPRESSION: There appear to be acute fractures involving the medial aspects of the right superior and inferior pubic rami. CT could be obtained to better evaluate if indicated. No other fractures are identified. Electronically signed by: Mauricio Lugo MD 04/27/2019 8:19 PM CDT
--- NOTE | 2019-04-27 20:21 | RAD ---
EXAM DESCRIPTION: Hip,Right 2 Views (accession [id number]), Pelvis (accession [id number]), Femur, right (accession [id number]) CLINICAL HISTORY: 83 years Female hip pain, found in floor last night COMPARISON: None. TECHNIQUE: AP pelvis, two views of the right hip and two views of the right femur. FINDINGS: There is curvature in the lumbar spine convex left. There are marked degenerative changes along the lumbar spine on the right. There are fractures involving the medial margins of the superior and inferior pubic ramus on the right. The femur appears intact. The hip is not dislocated. There are atherosclerotic calcifications. IMPRESSION: There appear to be acute fractures involving the medial aspects of the right superior and inferior pubic rami. CT could be obtained to better evaluate if indicated. No other fractures are identified. Electronically signed by: Mauricio Lugo MD 04/27/2019 8:19 PM CDT
[2019-04-27] MEDS: traMADol HCL 50 MG (ER DISP) # 6 TABS PO ONE ×2 (21:07→22:33)
--- NOTE | 2019-04-27 23:12 | HP ---
SUPERVISING PHYSICIAN: Gabriel Qiu MD CHIEF COMPLAINT: Right hip pain. HISTORY OF PRESENT ILLNESS: This is an 83-year-old female who was brought to the Emergency Room by her daughter. Apparently, she is a resident at [facility]. Her daughter was trying to help her get up and she complained of hip pain. She was unaware she had any fall and has some dementia, so is not a good source of information. She was seen in the Emergency Room and had x-rays done. Basically all the x-rays that were done indicated a right superior inferior pubic rami fracture. Initially, she was going to be sent back to the long term, however, then agrees to be admitted for pain control. On examination, the patient is alert. She is not complaining of any pain at this time. She has also not been out of bed yet either. PAST MEDICAL HISTORY: 1. Coronary artery disease. 2. Hypertension. 3. Lumbar radiculopathy. 4. Hyperlipidemia. 5. Osteoporosis. 6. Restless leg syndrome. PAST SURGICAL HISTORY: 1. Right total knee arthroplasty. 2. Appendectomy. 3. Hysterectomy. MEDICATIONS: Please see the [employer] rec list. ALLERGIES: CODEINE. FAMILY HISTORY: Noncontributory. SOCIAL HISTORY: She is and lives at [facility]. Positive for smoking. No illicit drugs, no alcohol. REVIEW OF SYSTEMS: Please see the history of present illness. She does not complain of anything else, but also states she does not remember a lot of things either. PHYSICAL EXAMINATION: VITAL SIGNS: Blood pressure 131/71. Heart rate 79. Respiratory rate 16. Temperature 98.8. Oxygen saturation 96%. GENERAL: Ms. Cardoza is an 83-year-old female who is in no active distress. HEENT: Normocephalic, atraumatic. Pupils are equal and reactive. No nasal drainage. Throat with moist mucosa. NECK: Supple. Midline trachea. No jugular venous distention. CHEST: Symmetrical with equal rise and fall of the chest with inspiration and expiration. Lung sounds are diminished, but otherwise clear to auscultation bilaterally. CARDIOVASCULAR: Regular rate and rhythm. Normal S1, S2. ABDOMEN: Soft. Positive bowel sounds. GENITOURINARY: Deferred. EXTREMITIES: Lower extremities with no edema. LABORATORY: White count 8.7, hemoglobin 10.7, hematocrit 31.5, platelet count 161. Chemistries show sodium 136, potassium 3.9, chloride 103, CO2 25, BUN 35, creatinine 0.62, glucose 99, calcium 8.7. X-ray results as above in history of present illness. Labs and films are as discussed in history of present illness. ASSESSMENT: 1. Pubic rami fracture. 2. Hypertension. 3. Dementia. 4. Chronic back pain. 5. History of coronary artery disease. PLAN: At this time, the patient will be admitted for acute pain control. She was having some pain, but received some IV pain medications that relieved the pain. We will need to get her out of bed and ambulate her and see how well she does with this. At her baseline, she uses a wheelchair quite a bit anyhow. If the pain is controlled, we can discharge tomorrow with p.o. pain medications. I did see a temperature of 99.9. I am going to go ahead and check a urinalysis as she had a recent urinary tract infection a couple of months ago. White blood cell count is normal, but she does have a mild left shift. DVT and GI ulcer prophylaxis have been ordered. [facility][id number] [facility]
[2019-04-28] MEDS ORDERED: SODIUM CHLORIDE 0.9% (FLUSH) 10 ML SYG IV PRN (00:13)
[2019-04-28] MEDS ORDERED: ONDANSETRON INJ 4 MG/2 ML VIAL IV PRN (00:13)
[2019-04-28] MEDS ORDERED: fentaNYL CITRATE INJ 50 MCG/ML AMP IV PRN (00:17)
[2019-04-28] MEDS ORDERED: IV SET AND CAP CHANGE INJ INJ SCH (00:30)
[2019-04-28] MEDS: PANTOPRAZOLE SODIUM IV 40 MG VIAL IV SCH (06:30)
[2019-04-28] MEDS: LOSARTAN POTASSIUM 100 MG TAB PO SCH (10:59)
[2019-04-28] MEDS: RAMIPRIL 5 MG CAP PO SCH ×2 (11:00→20:11)
[2019-04-28] MEDS: METOPROLOL TARTRATE 50 MG TAB PO SCH ×2 (11:00→20:12)
[2019-04-28] MEDS: SODIUM CHLORIDE 0.9% (FLUSH) 10 ML SYG IV SCH ×2 (11:17→20:12)
[2019-04-28] MEDS: HYDROcodone 5MG/APAP 325MG 1 EA TAB PO PRN ×2 (17:25→23:31)
[2019-04-28] MEDS: SIMVASTATIN 20 MG TAB PO SCH (20:12)
[2019-04-28] MEDS ORDERED: NON-FORMULARY MEDICATION 1 EA MIS (Hydralazine Hcl [Hydralazine Hcl] 50 MG) PO SCH (21:00)
[2019-04-29] MEDS: HYDROcodone 5MG/APAP 325MG 1 EA TAB PO PRN ×3 (04:27→21:02)
[2019-04-29] MEDS: PANTOPRAZOLE SODIUM IV 40 MG VIAL IV SCH (06:26)
[2019-04-29] MEDS: SODIUM CHLORIDE 0.9% (FLUSH) 10 ML SYG IV SCH ×2 (13:14→21:03)
[2019-04-29] MEDS: LOSARTAN POTASSIUM 100 MG TAB PO SCH (13:15)
[2019-04-29] MEDS: RAMIPRIL 5 MG CAP PO SCH ×2 (13:15→21:02)
[2019-04-29] MEDS: METOPROLOL TARTRATE 50 MG TAB PO SCH ×2 (13:15→21:02)
[2019-04-29] MEDS: SIMVASTATIN 20 MG TAB PO SCH (21:02)
[2019-04-30] MEDS: HYDROcodone 5MG/APAP 325MG 1 EA TAB PO PRN ×2 (05:40→11:33)
[2019-04-30] MEDS: PANTOPRAZOLE SODIUM IV 40 MG VIAL IV SCH (06:15)
--- NOTE | 2019-04-30 07:58 | PN ---
DATE: 04/29/19 SUPERVISING PHYSICIAN: SATHISH MULLINS MD SUBJECTIVE: The patient is feeling okay with no pain until she moves. She is requiring hydrocodone for movement and yesterday was a full assist. Physical therapy has not worked with her without assistance as of yet. OBJECTIVE: VITAL SIGNS: Blood pressure 100/60, heart rate 96, respiratory rate 16, temperature 98.8, oxygen saturation 96%. GENERAL: Ms. Cardoza is an 83 year-old female in no active distress currently. NEUROLOGICAL: The patient is alert and oriented. CHEST: Lungs are clear to auscultation bilaterally. CARDIAC: Regular rate and rhythm. Normal S1, S2.. ABDOMEN: Soft, positive bowel sounds. EXTREMITIES: Lower extremities with no pitting edema. ASSESSMENT: 1. Pubic rami fracture. 2. Hypertension. 3. Dementia. 4. Chronic back pain. 5. History of coronary artery disease. PLAN: The patient seems to be a bit improved but she still has it with movement. Am not really sure it is going to get much better, it will just take some time. We will discuss physical therapy and if she has improved weight bearing and ambulation, we can attempt to get her back to the [facility] versus a rehabilitation picture. #[id number] [facility]
[2019-04-30] MEDS: RAMIPRIL 5 MG CAP PO SCH (10:32)
[2019-04-30] MEDS: METOPROLOL TARTRATE 50 MG TAB PO SCH (10:32)
[2019-04-30] MEDS: LOSARTAN POTASSIUM 100 MG TAB PO SCH (10:32)
[2019-04-30 12:36] VITALS: BP 120/68; TEMP 98.2; O2SAT 96
--- NOTE | 2019-04-30 18:04 | DS ---
SUPERVISING PHYSICIAN: Gabriel Qiu M.D. DISCHARGE DIAGNOSIS: 1. Pubic rami fracture. 2. Hypertension. 3. Dementia. 4. Chronic back pain. 5. History of coronary artery disease. HISTORY OF PRESENT ILLNESS: This is an 83-year-old female patient who resides at [facility]. She was brought to the Emergency Room by her daughter. Her daughter was trying to help her get up and she complained of some hip pain. The daughter was unaware of any fall although the patient does have some dementia. X-rays were done in the Emergency Room and the x-rays indicated a right superior inferior pubic rami fracture. Initially, she was going to be sent back to the shelter, but she was in quite a bit of pain so she was placed in observation for pain control. HOSPITAL COURSE: She was placed in observation and initially received some IV pain medications. Physical Therapy was consulted to get her out of bed and moving around. At her baseline she uses the wheelchair most of the time. It was somewhat difficult to control her pain as sometimes it was well controlled with IV medications and as she was transition to Hydrocodone depending on her activity, the Hydrocodone helped most of the time other than when she was up moving around. Initially she was able to bear weight with standing. She did have right pelvic pain. She had limited in stand pivot transfer and gait ability secondary to the pain. She did require max assistance secondary to right pelvic pain with any movement. I did call her PCP, Dr. Holloway, to call in Hydrocodone for her. She is an observation patient and she will be discharged back to [facility] for physical therapy as well as continuing on her Hydrocodone for pain. LABORATORY: CBC was basically unremarkable with WBC of 8,700, hemoglobin 10.7, hematocrit 31.5. Chemistries showed electrolytes basically within normal limits with serum total protein of 6.2 and albumin of 2.8. Urinalysis was unremarkable. RADIOLOGY: As per the History of Present Illness. DISCHARGE PLAN: The patient will be discharged back to [facility]. She will be discharged in fair condition. She is to resume her previous diet as well as her previous medications. I have contacted Dr. Reginaldo Holloway's office to refill her Hydrocodone which is 5/325 every 4 hours p.r.n. pain. She is to followup with her PCP, Dr. Holloway, within 1 to 2 weeks. She is to have physical therapy at [facility]. She is encouraged to do good pulmonary hygiene at [facility] to help prevent pneumonia or other complications. She is to return to the hospital or call Dr. Holloway's office for any problems or complications. DISCHARGE MEDICATIONS: 1. Simvastatin. 2. Losartan. 3. Metoprolol tartrate. 4. Ramipril. 5. Clonazepam. 6. Hydralazine. 7. Hydrocodone. #[id number] [facility]
== END 2019-04-30 11:40 ==
LOC: ER 18:52 → INTOOBSV 23:11 → MS 23:11
PROVIDERS: ADMIT Nurse Practitioner Acute Care; ATTEND Nurse Practitioner Acute Care
DX: S32.591A Other specified fracture of right pubis, initial encounter for closed fracture (principal); G89.11 Acute pain due to trauma; I10 Essential (primary) hypertension; F03.90 Unspecified dementia, unspecified severity, without behavioral disturbance, psychotic disturbance, mood disturbance, and anxiety; G89.29 Other chronic pain; M54.16 Radiculopathy, lumbar region; I25.10 Atherosclerotic heart disease of native coronary artery without angina pectoris; E78.5 Hyperlipidemia, unspecified; M81.0 Age-related osteoporosis without current pathological fracture; G25.81 Restless legs syndrome; F17.210 Nicotine dependence, cigarettes, uncomplicated; X58.XXXA Exposure to other specified factors, initial encounter; Y92.129 Unspecified place in nursing home as the place of occurrence of the external cause; Z66 Do not resuscitate; Z79.899 Other long term (current) drug therapy; Z88.6 Allergy status to analgesic agent; Z96.651 Presence of right artificial knee joint
CPT/HCPCS: 96374; 96375; 96376 ×3; J3010 ×2; 80053; 87086; 36415; 81001; 85025; 72170; 73551; 73502; 94760 ×4; 97530 ×4; G8978; G8979; 97162; 99285

== ENCOUNTER → 2019-09-24 | Outpatient (CLI) | payer MEDICARE ==
--- NOTE | 2019-09-24 14:30 | US ---
EXAM DESCRIPTION: Renal Arteries: Ultrasound. CLINICAL HISTORY: ESSENTIAL HYPERTENSION COMPARISON: Bilateral renal ultrasound February 2019. TECHNIQUE: Transcutaneous scanning: Grayscale mode. Doppler systolic and diastolic measurements of the abdominal aorta, renal arteries, intra renal arteries, and renal veins. FINDINGS: The right kidney with no hydronephrosis. Mild to moderate left hydronephrosis. PSV (cm/sec): Aorta: 57 Right renal artery: 84 Left renal artery: 62 EDV (cm/sec): Right renal artery: 16 Left renal artery: 17 Renal veins: Unremarkable IVC: Visualized Intrarenal RI's: Superior/Segmental Right: 0.78 Left: 0.67. Inferior segmental Right: 0.72 Left: 0.82 Renal Aortic Ratio: Right RAR = RRA PSV/Aortic PSV = 84 /57= 1.5. Left RAR = LRA PSV/Aortic PSV = 62/57 = 1.1. End Diastolic Ratio: Right EDR = RRA EDV/RRA PSV = 16/84 = 0.19. Left EDR = LRA EDV/LRA PSV = 17/62= 0.27. Other: Left renal moderate hydronephrosis. IMPRESSION: 1. Bilateral renal aortic ratios with no evidence of significant renal artery stenosis. 2. Right renal parenchymal resistive indices greater than 0.69, and end diastolic ratio less than 0.24 indicating significant renovascular parenchymal disease. Mean left renal parenchymal resistive index greater than 0.69 and end diastolic ratio slightly greater than 0.26 indicating mild to moderate renovascular parenchymal disease. 3. Moderate left renal hydronephrosis, stable compared to prior ultrasound February 2019. Electronically signed by: Rasta Kinney MD 09/24/2019 2:28 PM [facility]
== END ==
LOC: US 09:25
PROVIDERS: ATTEND Family Medicine
DX: I10 Essential (primary) hypertension (principal); N13.30 Unspecified hydronephrosis

== ENCOUNTER 2019-11-17 18:30 | Emergency (ER) | payer MEDICARE ==
[2019-11-17] MEDS ORDERED: SODIUM CHLORIDE 0.9% (FLUSH) 10 ML SYG IV PRN (18:47)
--- NOTE | 2019-11-17 18:48 | ED.PDOC ---
History of Present Illness - General Time Seen by Provider: 11/17/19 18:47 Source: patient, family - History of Present Illness Initial Comments: 83 yo female with PMH of poorly controlled HTN, chronic smoker who is bib daughter from home for cc of elevated blood pressure. Daughter reports this has been an ongoing issue for several months now. She is being managed outpatient by Dr. Lee and Dr. Schmid. She reports compliance with her BP regimen - metoprolol 50 mg TID, hydralazine 50 mg BID, Losartan 100 mg daily, spironolactone 25 mg daily. She last saw Dr. Schmid 3 weeks ago and her BP was under decent control at that point. However, for the past 1-2 weeks it has become uncontrolled again. Her most recent medication adjustment was increasing metoprolol from BID to TID. Her daughter states this week her BP has mostly ranged 180s-190s/100s-110s on checks throughout the day. Pt denies any acute sx's - no RUBIO, vision changes, chest pain, dyspnea, abd pain, n/v/d, edema, etc... Reports she had a negative work-up for renal artery stenosis recently. She does smoke 1 ppd cigarettes, does not drink alcohol. Allergies/Adverse Reactions: Allergies Codeine Adverse Reaction (Mild, Verified 02/26/19 11:25) Other Home Medications: Ambulatory Orders Losartan Potassium 100 mg PO DAILY 02/26/18 Metoprolol Tartrate 50 mg PO BID 02/26/18 Ramipril 10 mg PO BID 02/26/18 Simvastatin 40 mg PO BEDTIME 02/26/18 Hydralazine HCl 50 mg PO BID 04/28/19 Cephalexin Monohydrate [Keflex] 500 mg PO BID 5 Days #10 cap 11/17/19 Citalopram Hydrobromide 10 mg PO 11/17/19 Clonidine HCl [Clonidine Hydrochloride] 0.1 mg PO Q1H PRN 30 Days #15 tab 11/17/19 Spironolactone 25 mg PO 11/17/19 Review of Systems - Review of Systems Review of Systems: 11/17/19 21:03 as per HPI All other Systems: Reviewed and Negative Past Medical History (General) - Patient Medical History Hx Seizures: No Hx Stroke: No Hx Asthma: No Hx of COPD: No Hx Cardiac Disorders: Yes - CAD Hx Congestive Heart Failure: No Hx Pacemaker: No Hx Hypertension: Yes Hx Diabetes: No Hx Cancer: No Hx MRSA: No - Vaccination History Hx Tetanus, Diphtheria Vaccination: No Hx Influenza Vaccination: No Hx Pneumococcal Vaccination: Yes - Social History Hx Tobacco Use: Yes Hx Alcohol Use: No Hx Substance Use: No Hx Substance Use Treatment: No Hx Depression: No Hx Physical Abuse: No Hx Emotional Abuse: No - Female History Patient : No Family Medical History - Family History Mother Family History: Unknown Living Status: Physical Exam - Physical Exam General Appearance: Alert, Comfortable, No apparent distress Eye Exam: bilateral normal Ears, Nose, Throat: hearing grossly normal, normal ENT inspection, normal pharynx Neck: non-tender, full range of motion, supple, normal inspection Respiratory: lungs clear, normal breath sounds, no respiratory distress, no accessory muscle use Cardiovascular/Chest: normal peripheral pulses, regular rate, rhythm, no edema, no gallop, no JVD, no murmur Peripheral Pulses: radial,right: 2+, radial,left: 2+ Gastrointestinal/Abdominal: non tender, soft, no organomegaly Back Exam: normal inspection, no CVA tenderness, no vertebral tenderness Extremity: normal range of motion, non-tender, normal inspection, no pedal edema, no calf tenderness Neurologic: agricultural consultant II-XII nml as tested, no motor/sensory deficits, alert, normal mood/affect, oriented x 3 Skin Exam: normal color, warm/dry Progress - Progress Progress: 11/17/19 19:34 Hypertensive urgency -BP initially 220s/120s on arrival, remainder of vitals wnl -consider essential HTN most likely worsened by chronic smoking vs secondary causes (BEN, electrolyte derangements, ACS, etc...) -check labs, cardiac work-up, monitor BP, will give PRN Labetalol in ED to try to lower. If unable to control, may have to admit for further control and assessment of home meds 11/17/19 23:06 -UA reveals 10-20 WBC, +Leuk esterase - suspect UTI. Labs otherwise pretty unremarkable. -BP improved to 140s/70s following Labetalol 10 mg IV x1 in ED. Pt still without any acute sx's. -Discussed with daughter and pt at length regarding diagnosis of poorly controlled HTN and need for close outpatient f/u. Daughter appears very anxious about her BP and was hoping for hospital admission. However, as her BP is improved in the ED with no acute sx's and normal labs/work-up, I see no indication for hospital admission at this time. Further, it appears this has been a chronic issue ongoing for several weeks/months now and appropriately being managed by her doctors in the clinic. She has f/u with Dr. Schmid next week. I tried to call Dr. Lee but no answer this late at night. Will have the nursing staff contact his clinic in the AM to see about getting a 3-5 day f/u for the patient for repeat HTN eval. In the meantime, will give Rx of clonidine 0.1 mg PO PRN elevated BP >180 systolic or >110 diastolic at home. Advised no more than 3 doses at home before coming to the ED if it is that poorly controlled or if any red flag sx's. Continue home meds otherwise as previously Rx'd. Will give Keflex 500 mg PO BID x5 days for UTI, first dose here. -dc to home in fair condition Nelson Hurt MD Billing #[id number] 11/17/19 18:47 IV Care:Saline Lock per Protoc QSHIFT Telemetry .ONCE Sodium Chloride 0.9% (Flush) [Saline Flush Syringe] 10 ml IV PRN PRN 11/17/19 19:00 EKG STAT 11/17/19 20:26 Urine Culture Stat 11/18/19 09:00 Pulse Ox Daily Laboratory Results - last 24 hr 11/17/19 11/17/19 11/17/19 18:47 18:47 18:47 WBC 9.4 RBC 4.70 Hgb 14.5 Hct 43.4 MCV 92.4 MCH 30.9 MCHC 33.4 RDW 14.0 Plt Count 210 MPV 9.1 Absolute Neuts (auto) 6.20 Absolute Lymphs (auto) 2.30 Absolute Monos (auto) 0.70 Absolute Eos (auto) 0.10 Absolute Basos (auto) 0.10 Neutrophils % 65.3 Lymphocytes % 24.5 Monocytes % 7.7 Eosinophils % 1.5 Basophils % 1.0 Sodium 138 Potassium 4.9 Chloride 99 L Carbon Dioxide 27 Anion Gap 16.9 BUN 25 H Creatinine 0.87 BUN/Creatinine Ratio 28.7 H Random Glucose 90 Serum Osmolality 279.6 Calcium 10.0 Total Bilirubin 0.5 AST 15 ALT 16 Alkaline Phosphatase 90 Troponin I < 0.02 B-Natriuretic Peptide 80.0 Serum Total Protein 8.0 Albumin 4.5 Globulin 3.5 Albumin/Globulin Ratio 1.3 Urine Color Urine Appearance Urine pH Ur Specific [place] Urine Protein Urine Glucose (UA) Urine Ketones Urine Blood Urine Nitrite Urine Bilirubin Urine Urobilinogen Ur Leukocyte Esterase Urine RBC Urine WBC Ur Epithelial Cells Urine Bacteria 11/17/19 20:26 WBC RBC Hgb Hct MCV MCH MCHC RDW Plt Count MPV Absolute Neuts (auto) Absolute Lymphs (auto) Absolute Monos (auto) Absolute Eos (auto) Absolute Basos (auto) Neutrophils % Lymphocytes % Monocytes % Eosinophils % Basophils % Sodium Potassium Chloride Carbon Dioxide Anion Gap BUN Creatinine BUN/Creatinine Ratio Random Glucose Serum Osmolality Calcium Total Bilirubin AST ALT Alkaline Phosphatase Troponin I B-Natriuretic Peptide Serum Total Protein Albumin Globulin Albumin/Globulin Ratio Urine Color Yellow Urine Appearance Clear Urine pH 6.5 Ur Specific [place] 1.020 Urine Protein Negative Urine Glucose (UA) Negative Urine Ketones Negative Urine Blood Negative Urine Nitrite Negative Urine Bilirubin Negative Urine Urobilinogen 0.2 Ur Leukocyte Esterase Small H Urine RBC 0-1 Urine WBC 10-20 H Ur Epithelial Cells 0 Urine Bacteria 2+ H - EKG/XRAY/CT EKG: Sinus - NSR, HR 60, no ST elevations, q waves noted in anterior leads indicative likely of old TX, axis & intervals normal, compared to 03/04/19 EKG LBBB appears resolved XRAY: chest - no acute processes per my read Departure - Departure Clinical Impression: Poorly-controlled hypertension UTI (urinary tract infection) Qualifiers: Urinary tract infection type: acute cystitis Hematuria presence: without hematuria Qualified Code(s): N30.00 - Acute cystitis without hematuria Time of Disposition: 23:15 Disposition: Discharge to Home or Self Care Condition: Fair Instructions: DI for High Blood Pressure Diet: low salt diet Referrals: Gabriel Qiu MD [Primary Care Provider] - 1-2 Weeks Prescriptions: Cephalexin Monohydrate [Keflex] 500 mg PO BID 5 Days #10 cap Clonidine HCl [Clonidine Hydrochloride] 0.1 mg PO Q1H PRN 30 Days #15 tab PRN Reason: Hypertension Home Medications: Ambulatory Orders Losartan Potassium 100 mg PO DAILY 02/26/18 Metoprolol Tartrate 50 mg PO BID 02/26/18 Ramipril 10 mg PO BID 02/26/18 Simvastatin 40 mg PO BEDTIME 02/26/18 Hydralazine HCl 50 mg PO BID 04/28/19 Cephalexin Monohydrate [Keflex] 500 mg PO BID 5 Days #10 cap 11/17/19 Citalopram Hydrobromide 10 mg PO 11/17/19 Clonidine HCl [Clonidine Hydrochloride] 0.1 mg PO Q1H PRN 30 Days #15 tab 11/17/19 Spironolactone 25 mg PO 11/17/19 Additional Instructions: Return if new or concerning symptoms such as chest pain, shortness of breath, headache, vision changes, etc... or if your blood pressure remains elevated >180 systolic or >110 diastolic and no improvement with home medications and clonidine as directed. Do not take clonidine more than 3 times at home in 1 day. If BP remains poorly controlled with clonidine, return to the ED for evaluation. Call Dr. Lee's clinic tomorrow morning to arrange close follow up visit in next 5-7 days if possible. I also advise that you quit smoking as this is also contributing to your elevated pressures.
[2019-11-17 18:52] VITALS: TEMP 98.5
--- NOTE | 2019-11-17 20:27 | RAD ---
EXAM DESCRIPTION: Chest,1 View CLINICAL HISTORY: elevated blood pressure COMPARISON: Chest radiographs dated July 16, 2019 and February 26, 2019 TECHNIQUE: One-view radiograph of the chest FINDINGS: Aortic calcification and tortuous thoracic aorta. Cardiac silhouette shows upper limits of normal heart size. Pulmonary vascularity is within normal limits. Hyperinflated lung volumes, compatible with COPD. Lungs show no confluent infiltrates. Small hiatal hernia. No pleural effusion. No pneumothorax. Curvature thoracolumbar spine, concave to the left. IMPRESSION: 1. No acute cardiopulmonary process. 2. Changes of COPD. 3. Small hiatal hernia. Electronically signed by: Donny Birmingham MD 11/17/2019 8:26 PM [employer]
[2019-11-17] MEDS: LABETALOL INJ 5 MG/ML VIAL IV ONE ×2 (21:42→22:03)
[2019-11-17] MEDS ORDERED: CEPHALEXIN MONOHYDRATE 250 MG CAP PO ONE (23:14)
[2019-11-17 23:20] VITALS: BP 167/67; O2SAT 97
== END 2019-11-17 23:39 | disposition home or self-care (01) ==
LOC: ER 18:30
DX: I10 Essential (primary) hypertension (principal); N30.00 Acute cystitis without hematuria; F17.210 Nicotine dependence, cigarettes, uncomplicated; I25.10 Atherosclerotic heart disease of native coronary artery without angina pectoris; Z79.899 Other long term (current) drug therapy; Z88.5 Allergy status to narcotic agent

== ENCOUNTER → 2020-10-18 | Outpatient (CLI) | payer MEDICARE | LOC: YCFC.O 15:20 | PROVIDERS: ATTEND Family Medicine | DX: N39.0 Urinary tract infection, site not specified (principal) ==